=== PATIENT | female | born 1960 | race Two or more races ===

== ENCOUNTER → 2024-06-08 | Outpatient (CLI) | payer MEDICAID, SELFPAY ==
--- NOTE | 2024-06-08 10:00 | XR_ITS ---
Examination: Breast ultrasound complete, bilateral Date and time of exam: June 08, 2024 0950 hours INDICATIONS: Lump in the left axillary tail. This month Technique: Real-time grayscale ultrasonographic imaging bilateral breasts, including all 4 quadrants as well as nipple retroareolar and axillary regions. Findings: Sonographic images right and left breast demonstrated no cystic or solid masses IMPRESSION: BI-RADS Category 1: Negative studies
--- NOTE | 2024-06-08 11:30 | XR_ITS ---
Examination: Diagnostic digital mammography, bilateral Computer aided detection 3-D breast Tomosynthesis, bilateral Date and time of exam: June 08, 2024 1019 hours INDICATIONS: Patient states lump under the left arm. Note is beginning 4 months ago Technique: Nonmagnified MLO, CC views of the breasts to been obtained, reconstructed from 3-D Tomosynthesis images. R2 computer aided detection program utilized for evaluation of suspicious masses and/or abnormal calcifications. 3-D Tomosynthesis images obtained. Findings: The breasts are heterogeneously dense, which may obscure small masses Multiple enlarged bilateral axillary lymph nodes 6 mm round circumscribed nodule retroareolar region right breast Impression: BI-RADS Category 0: Incomplete: Need additional imaging evaluation 6 mm round circumscribed nodule retroareolar region right breast, recommend follow-up spot tomographic views of this nodule Also recommend 6 month bilateral mammography follow-up to document stability of multiple enlarged axillary lymph node.
== END | disposition home or self-care (01) ==
PROVIDERS: PCP Obstetrics & Gynecology; Referring Provider Obstetrics & Gynecology; Visit Provider Obstetrics & Gynecology
DX: N63.41 Unspecified lump in right breast, subareolar (principal); R59.0 Localized enlarged lymph nodes
CPT/HCPCS: 76641; 77062; 77066; G0279